=== PATIENT | male | born 1950 | race Caucasian/White ===

== ENCOUNTER 2017-02-26 05:48 | Emergency (ER) | payer OTHER ==
[~2017-02-26] VITALS: Ht 172.7 cm; Wt 100.0 kg
[2017-02-26 06:21] VITALS: Ht 172.7 cm; Wt 100.0 kg
[2017-02-26] MEDS ORDERED: HYDROCODONE/APAP (5/325) TAB PO ONE (07:00)
--- NOTE | 2017-02-26 07:03 | ERD ---
ER Documentation Chief Complaint Date/Time DATE: 02/26/17 TIME: 07:00 Chief Complaint c/o right ankle and left elbow pain s/p fall @ work while unloading a truck HPI This is a 66-year-old male who presents emergency department today complaining of left elbow pain and right ankle pain after a fall 3 nights ago. States that he was unloading some boxes from a truck when there was a box down on the ground he tripped and fell over it. States he has not taken any medication for the pain but he has put ice on. Denies any fevers or chills or previous trauma. ROS All systems reviewed and are negative except as per history of present illness. Medications Home Meds Active Scripts Acetaminophen* (Tylophen*) 500 Mg Capsule, 1 CAP PO Q6H Y for PAIN AND OR ELEVATED TEMP, #30 CAP Prov:BLAKE BEST PA-C 02/26/17 Naproxen* (Naprosyn*) 500 Mg Tablet, 500 MG PO BID Y for PAIN AND/OR INFLAMMATION, #30 TAB Prov:BLAKE BEST PA-C 02/26/17 Allergies Allergies: Coded Allergies: No Known Allergy (Unverified , 02/26/17) PMhx/Soc History of Surgery: No Anesthesia Reaction: No Hx Neurological Disorder: No Hx Respiratory Disorders: No Hx Cardiac Disorders: No Hx Psychiatric Problems: No Hx Miscellaneous Medical Probl: No Hx Alcohol Use: No Hx Substance Use: No Hx Tobacco Use: No Smoking Status: Never smoker Physical Exam Vitals Vital Signs Date Time Temp Pulse Resp B/P Pulse Ox O2 Delivery O2 Flow Rate FiO2 02/26/17 06:21 98.5 72 18 176/83 95 Physical Exam Const: No acute distress Head: Atraumatic Eyes: Normal Conjunctiva ENT: Normal External Ears, Nose and Mouth. Neck: Full range of motion..~ No meningismus. Resp: Clear to auscultation bilaterally Cardio: Regular rate and rhythm, no murmurs Skin: No petechiae or rashe MSK: Left elbow with no obvious deformity. No effusion. No ecchymosis. Full active range of motion. Tenderness to palpation diffusely. Right ankle with no obvious deformity. Mild effusion over lateral aspect. Pulses 2+. Distal neurovascularly intact. Neur: Awake and alert Psych: Normal Mood and Affect Results 24 hrs Current Medications Medications (Trade) Dose Ordered Sig/Teresa Route PRN Reason Start Time Stop Time Status Last Admin Dose Admin Acetaminophen/ Hydrocodone Bitart ([place] (5/325)) 1 tab ONCE ONCE PO 02/26/17 07:00 02/26/17 07:01 DC 02/26/17 06:55 DIAGNOSTIC IMAGING REPORT Patient: JOHAN MEJIA : 1950 Age: 66 Sex: M MR #: [id number] DOS: 02/26/17 0000 Ordering MD: BLAKE BEST PA-C Location: [facility] Room/Bed: PROCEDURE: XR Ankle. CLINICAL INDICATION: Status post fall TECHNIQUE: Three views of the right ankle are available for review COMPARISON: None available FINDINGS: There are small well corticated osseous fragment of the tip of the medial malleolus, likely from remote avulsion injury. The ankle mortise is otherwise preserved. There is a lucency seen at the medial dome of the talus suspicious for subchondral cystic change. Enthesopathic changes seen at the Achilles insertion. No acute osseous abnormality is identified. Os peroneum. Very mild soft tissue swelling is seen. IMPRESSION: 1. No radiographic evidence for acute fracture. 2. Small, ununited osseous fragment at the tip of the medial malleolus. 3. Degenerative changes of the tibiotalar joint noting lucency at the medial talar dome suspicious for subchondral cystic change / osteochondral defect. A non emergent MRI may be obtained for better assessment. 4. Suggestion of a tibiotalar joint effusion. RPTAT: EE .Jose A Ennis MD, MD Date Time Electronically viewed and signed by .Jose A Ennis MD, MD on 02/26/2017 07:29 .d/ CC: BLAKE BEST PA-C DIAGNOSTIC IMAGING REPORT Patient: JOHAN MEJIA : 1950 Age: 66 Sex: M MR #: [id number] DOS: 02/26/17 0000 Ordering MD: BLAKE BEST PA-C Location: [facility] Room/Bed: PROCEDURE: XR Elbow. CLINICAL INDICATION: Fall TECHNIQUE: Three views of the left elbow are available for review COMPARISON: None available FINDINGS: There is no acute osseous or articular abnormality. No evidence for fracture. The radiocapitellar and ulnohumeral articular surfaces are preserved. No evidence for joint effusion or soft tissue calcifications. IMPRESSION: 1. No acute osseous abnormality. RPTAT: PP .Jose A Ennis MD, MD Date Time Electronically viewed and signed by .Jose A Ennis MD, MD on 02/26/2017 07:27 .d/ CC: BLAKE BEST PA-C Procedures/MDM This a 66-year-old male presents the emergency department today complaining of left elbow and right ankle pain after tripping and falling over some boxes a couple of days ago. Given patient's age and history of trauma I did obtain images. Per the radiology report images of the left elbow Show no acute osseous abnormality. There is no evidence for fracture, joint effusion or soft tissue calcifications. Images of the right ankleShow no radiographic evidence for acute fracture. There is a small ununited osseous fragment at the tip of the medial malleolus. There are degenerative changes of the tibiotalar joint noted lucency at the medial talar dome suspicion for subchondral cystic change. There is an osteochondral defect likely. Suggestion of a tibiotalar joint effusion. There degenerative changes seen at the Achilles insertion as well. There is an os peroneum. There is very mild soft tissue swelling seen Patient is afebrile and otherwise well-appearing. Low suspicion for septic joint or gout. Low suspicion for acute fracture dislocation. Symptoms at this time is consistent with sprain versus strain versus contusion and patient's ankle pain might also be exacerbated by degenerative changes. I have explained this to the patient. The sling to the patient he does need a follow-up with a primary care doctor for possible referral to Orthopaedics. Patient understood Patient was given [place] here in the emergency department. He will be given a prescription for Naprosyn and Tylenol for home. Patient declined crutches here in the emergency department. At this time the patient is stable for discharge and outpatient management. Patient should follow up with their PCP in the next 1-2 days. They may return to the emergency department sooner for any persistent or worsening of symptoms. Patient understood and agreed with the plan. Departure Diagnosis: Primary Impression: Ankle injury Encounter type: initial encounter Laterality: right Qualified Code: S99.911A - Injury of right ankle, initial encounter Additional Impression: Elbow injury Encounter type: initial encounter Laterality: left Qualified Code: S59.902A - Injury of left elbow, initial encounter Condition: Fair BLAKE BEST PA-C Feb 26, 2017 07:03
--- NOTE | 2017-02-26 07:27 | RADRPT ---
PROCEDURE: XR Elbow. CLINICAL INDICATION: Fall TECHNIQUE: Three views of the left elbow are available for review COMPARISON: None available FINDINGS: There is no acute osseous or articular abnormality. No evidence for fracture. The radiocapitellar and ulnohumeral articular surfaces are preserved. No evidence for joint effusion or soft tissue ca lcifications. IMPRESSION: 1. No acute osseous abnormality. RPTAT: PP .Jose A Ennis MD, MD Date Time Electronically viewed and signed by .Jose A Ennis MD, on 02/26/2017 07:27 .d/
--- NOTE | 2017-02-26 07:29 | RADRPT ---
PROCEDURE: XR Ankle. CLINICAL INDICATION: Status post fall TECHNIQUE: Three views of the right ankle are available for review COMPARISON: None available FINDINGS: There are small well corticated osseous fragment of the tip of the medial malleolus, likely from rem ote avulsion injury. The ankle mortise is otherwise preserved. There is a lucency seen at the medi al dome of the talus suspicious for subchondral cystic change. Enthesopathic changes seen at the Ac hilles insertion. No acute osseous abnormality is identified. Os peroneum. Very mild soft tissue s welling is seen. IMPRESSION: 1. No radiographic evidence for acute fracture. 2. Small, ununited osseous fragment at the tip of the medial malleolus. 3. Degenerative changes of the tibiotalar joint noting lucency at the medial talar dome suspicious for subchondral cystic change / osteochondral defect. A non emergent MRI may be obtained for better assessment. 4. Suggestion of a tibiotalar joint effusion. RPTAT: EE .Jose A Ennis MD, MD Date Time Electronically viewed and signed by .Jose A Ennis MD, on 02/26/2017 07:29 .d/
[2017-02-26] MEDS ORDERED: ACET500C5 PO (07:37)
[2017-02-26] MEDS ORDERED: NAPR-260 PO (07:37)
== END 2017-02-26 07:53 | disposition home or self-care (01) ==
LOC: FTE 05:48
DX: S99.911A Unspecified injury of right ankle, initial encounter (principal); S59.902A Unspecified injury of left elbow, initial encounter; W18.39XA Other fall on same level, initial encounter; Y92.812 Truck as the place of occurrence of the external cause

== ENCOUNTER 2019-03-24 07:49 | Emergency (ER) | payer SELFPAY ==
[~2019-03-24] VITALS: Ht 167.6 cm; Wt 105.0 kg
[~2019-03-24 07:49] MED LIST: ACET500C5 PO; CYCL10TA7 PO; HYDR-4011 PO; IBUP-1542 PO; MED4DP PO; NAPR-985 PO
[2019-03-24 07:52] VITALS: BP 207/98; PULSE 72; RESP 17; Ht 167.6 cm; Wt 105.0 kg
[2019-03-24] MEDS ORDERED: KETOROLAC 30 MG INJ IM STA (08:25)
== END 2019-03-24 08:43 | disposition home or self-care (01) ==
LOC: FTE 07:49
DX: M54.5 Low back pain (principal); I10 Essential (primary) hypertension
CPT/HCPCS: 96372; 99284; J1885